=== PATIENT | male | born 2000 | race Asian ===

== ENCOUNTER 2023-05-18 23:09 | Emergency (ER) | payer OTHER, SELFPAY ==
[2023-05-18 23:13] VITALS: BP 120/69; PULSE 63; RESP 16; TEMP 36.6; O2SAT 99; BMI 27.9
--- NOTE | 2023-05-19 00:11 | ED_ITS ---
HPI - URI/Sore Throat General Chief Complaint: Upper Respiratory Symptoms Stated Complaint: allergic reaction, breathing is ok, dry throat Time Seen by Provider: 05/18/23 23:44 Source: patient and old records reviewed Mode of arrival: ambulatory Limitations: no limitations History of Present Illness HPI Narrative: 22 yo male no sig PMH woke up with diffuse itching and hives without known exposure. He has no oral swelling or difficulty breathing. He cannot think of any exposures and this has not happened before. His triage is different from the story he tells me MD elicited complaint: other (hives) Onset (ago): day(s) (this AM upon waking) Consistency: constant Severity: moderate Able to tolerate fluids by mouth: Yes Exacerbating factors: nothing Relieving factors: nothing Context: other (woke up with unexplained hives) Associated symptoms: denies other symptoms Treatments prior to arrival: none Related Data Previous Rx's Medication Instructions Recorded prednisone 20 mg tablet 60 mg (3 x 20 mg) PO DAILY 4 days 05/19/23 #12 tabs Allergies Allergy/AdvReac Type Severity Reaction Status Date / Time No Known Allergies Allergy Verified 05/18/23 23:17 Review of Systems Review of Systems: Constitutional : No Fever, No Chills ENT/Mouth : positive oral swelling, No Hoarseness, No Swallowing Difficulty Eyes: No Eye Pain, No Swelling, No Redness Cardiovascular : No Chest Pain, No SOB Respiratory : No Cough, No Sputum, No Wheezing, No Smoke Exposure, No Dyspnea Gastrointestinal : No Nausea, No Vomiting, No Diarrhea, No abdominal Pain Musculoskeletal : No joint pain, No Myalgias, No Joint Swelling Skin : No Skin Lesions, positive rash Neuro : No Weakness, No Numbness, No Headache Psych : No Anxiety/Panic, No Depression All other systems reviewed and are negative [facility] Past Medical History Attestation statement: The following information was validated with the patient. Source: old records reviewed Medical History No pertinent past medical history Social History Social History Patient Tobacco Use Status: Never used Tobacco Physical Exam Vital Signs: Vital Signs: Last Vital Signs Temp 97.9 F 05/18/23 23:13 Pulse 63 05/18/23 23:13 Resp 16 05/18/23 23:13 BP 120/69 05/18/23 23:13 Pulse Ox 99 05/18/23 23:13 O2 Del Method Room Air 05/18/23 23:13 BMI result Body Mass Index 27.9 Appearance: Alert. Oriented X3. No acute distress. Eyes: Pupils equal, round and reactive to light. ENT: Pharynx normal. no angioedema or oral swelling Neck: Normal inspection. Neck supple. CVS: Normal heart rate and rhythm. Pulses normal. Respiratory: No respiratory distress. Breath sounds normal. Abdomen: Soft and non-tender. Skin: Skin warm and dry. Normal skin color. hives noted on lower abdomen, uppe r arms and lower back Extremities: No lower extremity edema. Neuro: Oriented X 3. No motor deficit. No sensory deficit. Medical Decision Making Medical Decision Making [facility] Narrative: 22 yo male with no PMH here with c/o hives but no oral swelling or resp issues at this time will need oral steroids and benadryl we discussed reasons to return and monitor exposures. He has no URI symptoms. He is not toxic and can be managed with PO medications. He does not need epi pen at this time VS stable. Differential Diagnosis Differential Diagnoses: The differential diagnosis associated with the presentation includes allergic reaction, idiopathic hives Lab Data [facility] Lab Attestation statement: I reviewed the patient's lab results. Prescription Management I considered prescription management with: Other (steroids) Discharge Plan Discharge Clinical Impression: Hives Patient Disposition: Home, Self-Care Instructions: Urticaria (ED) Additional Instructions: monitor for difficulty swallowing, breathing, worsening rash or any other concerns. monitor new exposures like lotion, detergent, soaps or any other new things that may have caused this. seek care if you have difficulty breathing or swallowing you can take benadryl 25 to 50mg every 6 hours as needed for itching Prescriptions: New prednisone 20 mg tablet 60 mg PO DAILY 4 Days Qty: 12 0RF
[2023-05-19 00:12] LABS: IDNOW Serial# BCCEAD1C; Influenza A Negative (Negative); Influenza B2 Negative (Negative)
[2023-05-19 00:13] LABS: COVID-19 Test Negative (Negative); IDNOW Serial# 55D5AD1C
[2023-05-19] MEDS: diphenhydrAMINE HCL 25 MG CAPSULE 50 MG PO (00:22)
[2023-05-19] MEDS: predniSONE 20 MG TABLET 60 MG PO (00:22)
[2023-05-19] MEDS: Famotidine 20 MG TABLET PO (00:22)
== END 2023-05-19 00:37 | disposition home or self-care (01) ==
PROVIDERS: Emergency Provider Emergency Medicine
DX: L50.0 Allergic urticaria (principal); Z20.822 Contact with and (suspected) exposure to COVID-19; Z20.828 Contact with and (suspected) exposure to other viral communicable diseases; Z79.899 Other long term (current) drug therapy
CPT/HCPCS: 87502; 87635; 99282